=== PATIENT | female | born 1945 | race Caucasian/White ===

== ENCOUNTER 2020-02-22 12:04 | Day surgery (SDC) | payer MEDICARE ==
[~2020-02-22 12:04] MED LIST: APIX5TAB PO; ASCO-96 PO; CALC-112 PO; CHOL2000 PO; CYAN500T7 PO; GLUC-121 PO; HYDR25TA6 PO; MAGN100T PO; METO25TA35 PO; PROP225C3 PO; SIMV10TA18 PO; TIOT18CA INH; VERA40TA PO; WARF3TAB PO; ZINC100T PO
[2020-02-22] MEDS ORDERED: DILT30TA33 PO (13:03)
[2020-02-22] MEDS ORDERED: AMIO200T42 PO (13:03)
[2020-02-22] MEDS ORDERED: FURO20TA3 PO (13:03)
[2020-02-22] MEDS ORDERED: ATOR40TA PO (13:03)
[2020-02-22] MEDS ORDERED: POTA10TA5 PO (13:08)
[2020-02-22] MEDS ORDERED: ZINC50TA10 PO (13:08)
[2020-02-22] MEDS ORDERED: WARF3TAB52 PO (13:08)
[2020-02-22] MEDS ORDERED: PROPOFOL 10 MG/ML, 20ML ONE (13:45)
[2020-02-22 13:50] LABS: ANION GAP 4 mmol/L (5-15); CALCIUM 9.4 mg/dL (8.5-10.1); CHLORIDE 108 mmol/L (98-107); CREATININE 0.88 mg/dL (0.55-1.02)
[2020-02-22 13:51] LABS: BASOPHILS % (AUTO) 0 % (0-1); EOSINOPHILS % (AUTO) 0 % (1-7); LYMPHOCYTES % (AUTO) 28 % (22-44); MEAN CORPUSCULAR HEMOGLOBIN 30.5 pg (27.0-34.8); MEAN CORPUSCULAR HGB CONC 32.9 g/dL (32.4-35.8); MEAN PLATELET VOLUME 7.8 fL (7.4-10.4); MONOCYTES % (AUTO) 7 % (2-9); NEUTROPHILS % (AUTO) 65 % (42-75); PLATELET COUNT 208 x10^3/uL (130-400); RED BLOOD COUNT 4.26 x10^6/uL (3.82-5.3); RED CELL DISTRIBUTION WIDTH 14.3 % (9.6-15.2)
[2020-02-22 14:00] LABS: MD NO
[2020-02-22 14:25] VITALS: BP 199/84
[2020-02-22 14:33] LABS: INTERNATIONAL NORMALIZED RATIO 1.73 (0.93-1.1); PROTHROMBIN TIME 18.2 Seconds (9.6-11.5)
== END 2020-02-22 15:25 | disposition home or self-care (01) ==
LOC: CACL 12:04
PROVIDERS: ATTEND Internal Medicine Cardiovascular Disease
DX: I48.91 Unspecified atrial fibrillation (principal); I10 Essential (primary) hypertension; E66.9 Obesity, unspecified; Z68.41 Body mass index [BMI] 40.0-44.9, adult; Z88.8 Allergy status to other drugs, medicaments and biological substances; Z79.899 Other long term (current) drug therapy; Z79.01 Long term (current) use of anticoagulants; Z95.0 Presence of cardiac pacemaker; Z72.89 Other problems related to lifestyle; Z87.891 Personal history of nicotine dependence
CPT/HCPCS: 36415; 80048; 85025; 85610; 92960; J2704